=== PATIENT | male | born 1955 | race Caucasian/White ===

== ENCOUNTER 2018-11-22 07:55 | Day surgery (SDC) | payer MEDICARE, OTHER ==
[~2018-11-22 07:55] MED LIST: CEFAZOLIN 2 Gram 2 GM/50 ML BAG IVPB ONE; CELECOXIB 100 MG CAPSULE PO ONE; FAMOTIDINE 20MG TABLET PO ONE; MECLIZINE 25 MG TABLET PO ONE; METOCLOPRAMIDE 10 MG TABLET PO ONE; VANCOMYCIN HCL 1,000 MG in DEXTROSE 5 % IN WATER 250 ML IVPB ONE
[2018-11-22] MEDS ORDERED: BUPIVACAINE 0.5% W/EPI MPF 30 ML VIAL IVP ONE (07:56)
[2018-11-22] MEDS ORDERED: DEXAMETHASONE 4 MG/ML 1ML VIAL IVP ONE (07:56)
[2018-11-22] MEDS ORDERED: ROPIVACAINE HCL (NAROPIN) /PF 5MG/ML 20ML VIAL IV ONE (07:56)
[2018-11-22] MEDS ORDERED: 0.9 % SODIUM CHLORIDE 10 ML VIAL IVP ONE (07:56)
[2018-11-22] MEDS ORDERED: EPHEDRINE SULFATE 50 MG/ML ML IV ONE (07:56)
[2018-11-22] MEDS ORDERED: PROPOFOL 10 MG/ML VIAL IV ONE (07:56)
[2018-11-22] MEDS ORDERED: MIDAZOLAM HCL 2MG/2ML VIAL IV ONE (07:56)
[2018-11-22] MEDS ORDERED: LIDOCAINE 2% MDV (20MG/ML) 20ML VIAL IV ONE (07:56)
[2018-11-22] MEDS ORDERED: TRANEXAMIC ACID 1,000 MG/10 ML ML IV ONE ×2 (07:56)
[2018-11-22] MEDS ORDERED: FENTANYL PF 100MCG/2ML VIAL IV ONE (07:56)
[2018-11-22 09:23] LABS: ABO GROUP O; ANTIBODY SCREEN NEGATIVE (NEGATIVE); RH TYPE POSITIVE
[2018-11-22] MEDS ORDERED: NALOXONE 0.4 MG/1 ML VIAL IVP PRN (11:42)
[2018-11-22] MEDS ORDERED: KETOROLAC 30 MG/ML VIAL IVP PRN ×2 (11:42)
[2018-11-22] MEDS ORDERED: BISACODYL 10 MG SUPP RC PRN (11:42)
[2018-11-22] MEDS ORDERED: HYDROCODONE/APAP 10/325 TABLET PO PRN (11:42)
[2018-11-22] MEDS ORDERED: MAGNESIUM HYDROXIDE 30 ML UDC PO PRN (11:42)
[2018-11-22] MEDS ORDERED: DIPHENHYDRAMINE HCL 25 MG CAPSULE PO PRN (11:42)
[2018-11-22] MEDS ORDERED: HYDROMORPHONE HCL 2 MG/ML VIAL IM PRN (11:42)
[2018-11-22] MEDS ORDERED: ACETAMINOPHEN 325 MG TAB PO PRN (11:42)
[2018-11-22] MEDS ORDERED: ACETAMINOPHEN W/ CODEINE 300MG/60MG TABLET PO PRN ×2 (11:42)
[2018-11-22] MEDS ORDERED: ZOLPIDEM TARTRATE 5 MG TABLET PO PRN (11:42)
[2018-11-22] MEDS ORDERED: ONDANSETRON HCL IV 4 MG/2 ML VIAL IVP PRN (11:42)
[2018-11-22] MEDS ORDERED: AL HYDROX/MAG HYDROX 30ML UD PO PRN (11:42)
[2018-11-22] MEDS ORDERED: TRAMADOL HCL 50 MG TABLET PO PRN (11:42)
[2018-11-22] MEDS: HYDROCODONE/APAP 10/325 TABLET PO PRN ×2 (15:28→19:36)
[2018-11-22] MEDS: LISINOPRIL 10 MG TABLET PO SCH ×2 (15:30→22:09)
--- NOTE | 2018-11-22 15:30 | Rehab Evaluation ---
Patient Information - Patient Information Diagnosis: R knee OA Ordered Treatment: PT Evaluate and Treat Status: Initial Evaluation Surgery: Yes (R TKA) Date of Surgery: 11/22/18 Past Medical/Surgical Hx: PAST MEDICAL/SURGICAL HISTORY Past Surgical History bilat RTC repair c scopes hernia repair PMH - Respiratory Hx Respiratory Disorders Yes Hx of URI Yes: has had a cold for a month sinus congestion dry cough at times PMH - Cardiovascular Hx Cardiovascular Disorders Yes Hx Hypertension Yes: on meds good control Exercise Tolerance Good Comment: hyperlipidemia PMH - Neuro Hx Neurological Disorders No PMH - GI Hx Gastrointestinal Disorders Yes PMH - Hx Genitourinary Disorders No PMH - Endocrine Hx Endocrine Disorders No PMH - Musculoskeletal Hx Musculoskeletal Disorders Yes Comment: right knee pain PMH - Psych Hx Psychiatric Problems No PMH - Hematology/Oncology Hx Hematology/Oncology No Disorders Premorbid Status: Detail (The patient was independent with all mobility prior to surgery.) Social History: Detail (The patient lives with spouse in a two story house (the patient is staying on first floor). The house has 4 steps at the enterance with one railing. The bathroom is equipped with a tub/shower combination and a standard toilet. The patient has a front wheeled walker and a shower chair.) Precautions: [place], Fall, Other (WBAT on the R LE.) - Time With Patient Total Time Spent With Patient (Min): 30 Treatment Procedures: Detail (Initial Evaluation, gait training) Subjective Information - Subjective Information Per Patient (The patient had no complaints of pain.) Objective Data - Mental Status Patient Orientation: Oriented x3 - Visual Perception Appears within normal limits for therapeutic activities - ROM Not within normal limits (The patient's R knee AROM is limited as to be expected following surgery. All other LE AROM is WNL.) - Strength/Tone Not within normal limits (The patient's R LE strength was not tested, however is functional ie: patient is able to complete a SLR. The patient's L LE strength is functional.) - Bed Mobility Independent (The patient is independent with supine to and from sit transfer and scooting up in bed.) - Transfers Independent (The patient is independent with sit to and from stand transfer.) - Balance Balance Sitting: Good Balance Standing: Good - Sensation Intact - Gait Detail (The patient ambulated independently with front wheeled walker a distance 130 feet x 1 WBAT on the R LE.) Therapy Assessment - Therapy Assessment Detail (The patient was independent with bed mobility and transfers and ambulation. Feel the patient will progress well with mobility.) Problem List - Problem List Physical Therapy Problem List: Detail (1) Decreased AROM R LE as to be expected following. 2) Decreased R LE strength.) Goals - Goals Physical Therapy Goals: 1) The patient will be independent with TKA HEP. 2) The patient will ambulate on stairs using proper technique with supervision. Prognosis - Prognosis Good Plan - Plan Physical Therapy Plan: PT 1-2 sessions for instruction in HEP and gait training on stairs.
[2018-11-22] MEDS: CEFAZOLIN 2 Gram 2 GM/50 ML BAG IVPB SCH (19:31)
[2018-11-22] MEDS: POTASSIUM CHLORIDE/D5-0.9%NACL 20 MEQ/1,000 ML BAG IV SCH ×2 (20:00→22:10)
[2018-11-22] MEDS ORDERED: ATORVASTATIN 20 MG TABLET PO SCH (22:00)
[2018-11-22] MEDS: DOCUSATE SODIUM 100 MG CAPSULE PO SCH (22:09)
[2018-11-23] MEDS: CEFAZOLIN 2 Gram 2 GM/50 ML BAG IVPB SCH ×2 (01:01→09:32)
[2018-11-23] MEDS: POTASSIUM CHLORIDE/D5-0.9%NACL 20 MEQ/1,000 ML BAG IV SCH (05:35)
[2018-11-23 06:58] LABS: HEMOGLOBIN 12.8 gm/dl (14.0-18.0)
[2018-11-23 07:40] LABS: BLOOD UREA NITROGEN 14 mg/dL (8-23); CREATININE 0.9 mg/dL (0.7-1.2); EST GLOMERULAR FILTRATION RATE > 60 mL/min; GLUCOSE,RANDOM 137 mg/dL (74-109)
--- NOTE | 2018-11-23 08:31 | Operative Note ---
DATE OF SURGERY: 11/22/2018 PREOPERATIVE DIAGNOSIS: End-stage arthrosis of the right knee. POSTOPERATIVE DIAGNOSIS: End-stage arthrosis of the right knee. OPERATION: Cemented right total knee arthroplasty using [employer]cl[employer] Radha II components with a size 7 Oxinium femur, a size 7 stem tibia baseplate, 9 mm lipped highly crosslinked tibial insert, and a 35 mm all plastic patella. Staff Surgeon: Harrison Montez MD Anesthesia: Spinal. PREPARATION: Chloraprep. INDIVIDUAL CONSIDERATIONS: None. PROCEDURE: The patient was taken to the operating room, placed supine on the operating room table. He had a successful induction of spinal anesthetic. The right lower extremity was prepped and draped in the usual fashion. The limb was elevated and tourniquet was inflated to 250 mmHg. The patient had a midline approach to the knee. Sharp dissection carried down through skin and subcutaneous tissue. Small veins were coagulated with a Bovie. A medial arthrotomy was performed. The patella was everted and the knee was flexed. He had exposed bone primarily in the lateral compartment. Fat pad was resected, ACL was sacrificed, provisional anterior meniscectomies were performed. The capsule was released from the medial proximal tibia. The initial femoral it senior software engineer java hole was made freehand. The intramedullary femoral cutting jig was placed. It was cut in 7.0 degrees of valgus and adjusted for rotation and secured with pins for a 10 mm resection. The initial transverse cut was then made. The skin guide was placed in the anterior and posterior it senior software engineer java holes. It was found that a size 7 would be appropriate. The anterior and posterior cuts followed by chamfer cuts were made. Osteophytes removed, and a size 7 trial was placed and found to fit well. The tibia was brought forward, and the remainder of the meniscal remnants removed with a Bovie. The extraarticular tibial cutting jig was placed. It was cut in neutral with a 3-degree AP slope. Care was taken to adjust the rotation and flexion using the extraarticular alignment guide and bony landmarks. It was set for a 9 mm resection keyed off the high medial side and secured with pins. When cutting the tibia, care was taken to preserve the PCL insertion on the tibia. After making the cut, osteophytes removed and I was able to fit a size 7 baseplate. It was adjusted for rotation and secured with pins. With a 9 mm trial and femoral trial, there was excellent motion and stability, ligamentous balance and rotation alignment were thought to be intact. The tourniquet was let down briefly to get bleeders posteriorly and then placed back up again. The patient had a thick patella, and roughly 9 mm of bone was removed with an oscillating saw. I could easily fit a 35 patella, and the 3 it senior software engineer java holes were drilled. The knee was then thoroughly irrigated out with pulsatile Betadine and saline to remove any visual or palpable debris. Bony surfaces were then dried. A size 7 stem tibia baseplate was cemented into place followed by impaction of the 9 mm lipped highly crosslinked tibial insert followed by cementing in the size 7 Oxinium femur followed by cementing in the 35 mm patella. The implant surfaces were compressed, excess cement was removed, and after the cement had set, there was excellent motion and stability, ligamentous balance, rotation alignment, and patellofemoral tracking were normal. No lateral release was required. Then 30 mL of Marcaine was used to infiltrate the periosteum and skin and subcutaneous tissue. The capsule was then closed after taking the tourniquet down and obtaining hemostasis with a running #2 quill, subcu was closed in layers with running 0 quill, skin was closed with merary. The patient did receive 1 g of tranexamic acid preoperatively. I mixed 1 g of tranexamic acid with 30 mL of saline and injected into the knee through a sterile 18-gauge needle, and a sterile bulky compressive dressing was applied. The patient tolerated the procedure well. Needle and sponge counts were correct. Estimated blood loss was minimal, and he was taken back to recovery in good condition. There were no complications. KRISTA
[2018-11-23] MEDS: DOCUSATE SODIUM 100 MG CAPSULE PO SCH (09:32)
[2018-11-23] MEDS: HYDROCODONE/APAP 10/325 TABLET PO PRN ×2 (09:33→12:46)
[2018-11-23] MEDS ORDERED: ASPIRIN 81 MG TABEC PO SCH (10:00)
[2018-11-23] MEDS ORDERED: MULTIVITAMINS/MINERALS TABLET PO SCH (10:00)
[2018-11-23] MEDS ORDERED: RIVAROXABAN 10 MG TABLET PO SCH (10:00)
[2018-11-23] MEDS ORDERED: FERROUS SULFATE 325 MG TAB PO SCH (10:00)
--- NOTE | 2018-11-23 10:51 | Rehab Evaluation ---
Patient Information - Patient Information Diagnosis: R knee OA Ordered Treatment: OT Evaluate and Treat Status: Initial Evaluation Surgery: Yes (R TKA) Date of Surgery: 11/22/18 Past Medical/Surgical Hx: PAST MEDICAL/SURGICAL HISTORY Past Surgical History bilat RTC repair c scopes hernia repair PMH - Respiratory Hx Respiratory Disorders Yes Hx of URI Yes: has had a cold for a month sinus congestion dry cough at times PMH - Cardiovascular Hx Cardiovascular Disorders Yes Hx Hypertension Yes: on meds good control Exercise Tolerance Good Comment: hyperlipidemia PMH - Neuro Hx Neurological Disorders No PMH - GI Hx Gastrointestinal Disorders Yes PMH - Hx Genitourinary Disorders No PMH - Endocrine Hx Endocrine Disorders No PMH - Musculoskeletal Hx Musculoskeletal Disorders Yes Comment: right knee pain PMH - Psych Hx Psychiatric Problems No PMH - Hematology/Oncology Hx Hematology/Oncology No Disorders Premorbid Status: Detail (The patient was independent with all mobility prior to surgery. Spouse is responsible for home mgmt, meal prep and laundry.) Social History: Detail (The patient lives with spouse in a two story house with basement (the patient is staying on first floor). The house has 4 steps at the entrance with one railing. The bathroom is equipped with a tub/shower combination and a standard toilet. The patient has a front wheeled walker, straight cane and a shower chair.) Precautions: [place], Fall, Other (WBAT on the R LE.) - Time With Patient Total Time Spent With Patient (Min): 30 Treatment Procedures: Detail (OT eval low complexity) Subjective Information - Subjective Information Per Patient Objective Data - Pain Pain Present: Yes (11/24) - Mental Status Patient Orientation: Oriented x3 - Visual Perception Appears within normal limits for therapeutic activities - ROM Within normal limits (Deyvi UE AROM WNL) - Strength/Tone Within normal limits (Deyvi UE strength WNL) - Coordination Appears within normal limits for therapeutic activities - Bed Mobility Independent (Ind with supine to sit.) - Transfers Independent (Ind with sit to stand from chair height.) - Balance Balance Sitting: Good Balance Standing: Good - Sensation Intact - Gait Detail (Pt ambulating in room with 2 wheeled walker.) - ADL's/IADL's Detail (Pt educated and able to demonstrate learning of modified LE dressing techniques including doffing slipper socks and donning underwear, pants and slip on shoes. Reviewed shower and kitchen safety and modifications, pt able to verbalize understanding.) Therapy Assessment - Therapy Assessment Detail (Pt is Ind with modified LE dressing techniques.) Problem List - Problem List Physical Therapy Problem List: Detail (1) Decreased AROM R LE as to be expected following. 2) Decreased R LE strength.) Occupational Therapy Problem List: Detail (No current IP OT problems identified. ) Goals - Goals Physical Therapy Goals: 1) The patient will be independent with TKA HEP. 2) The patient will ambulate on stairs using proper technique with supervision. Occupational Therapy Goals: No current IP OT goals identified. Prognosis - Prognosis Good Plan - Plan Physical Therapy Plan: PT 1-2 sessions for instruction in HEP and gait training on stairs. Occupational Therapy Plan: No further IP OT recommended. Thank you for this referral.
--- NOTE | 2018-11-23 11:11 | Physical Therapy Tx Note ---
Physical Therapy Tx Note - Treatment Note Tolerated: Good Total Time Spent With Patient: 20 Physical Therapy Tx Note: Detail (The patient was up in chair when PT arrived. The patient ambulated on steps using proper techinque using cane and railing with supervision for safety only. The patient ambulated with standard cane WBAT on the R LE a distance of 120 feet independently. The patient completed a HEP of quad sets, gluteal sets, hamstring sets, SLR , heel slides and ankle pumps.) Physical Therapy Problem List: Detail (1) Decreased AROM R LE as to be expected following. 2) Decreased R LE strength.) Physical Therapy Goals: 1) The patient will be independent with TKA HEP. ( Goal Met). 2) The patient will ambulate on stairs using proper technique with supervision. (Goal Met) Physical Therapy Plan: The patient has met all inpatient goals and is discharged from inpatient PT. The patient is to continue with Home PT.
== END 2018-11-23 13:04 | disposition home health service (06) ==
LOC: SUR 07:55 → MEDSURG 12:39 → SUR 11-23 13:04
PROVIDERS: ATTEND Orthopaedic Surgery
DX: M17.11 Unilateral primary osteoarthritis, right knee (principal); I10 Essential (primary) hypertension; E78.00 Pure hypercholesterolemia, unspecified
CPT/HCPCS: 27447; 01402; 64447; 85018; 85014; 80048; 36416; 82948; 86900; 86901; 86850; J3370; J3010; J0690 ×2; J3490 ×4; J2795; G8978; G8979 ×2; G8980; 76942; 97530; J3480; J7060